=== PATIENT | male | born 1975 | race Caucasian/White ===

== ENCOUNTER 2021-08-01 10:36 | Observation (INO) | payer OTHER, SELFPAY ==
[2021-08-01] VITALS (31 sets, daily range): BP systolic 132–171; BP diastolic 71–98; PULSE 70–94; RESP 15–24; TEMP 35.9–36.8; O2SAT 95–99
--- NOTE | ~2021-08-01 | US_ITS ---
EXAMINATION: US abdomen limited DATE: 08/02/2021 09:59 INDICATION: Abnormal liver function tests. Hepatitis C. TECHNIQUE: Multiple grayscale and Doppler ultrasound images of the abdomen were obtained. COMPARISON: None FINDINGS: The visualized portions of the head, body, and tail of the pancreas are normal. The liver i s normal without focal lesion. No liver surface nodularity. There is normal flow in main portal vein. The gallbladder is normal in size and contains gallstones. Gallbladder wall thickening is noted. The re was no sonographic Cui sign. The common duct is normal and measures 3 mm. IMPRESSION: 1. Cholelithiasis. Gallbladder wall thickening may be seen with interstitial edema, chronic cholecyst itis, or chronic liver disease. Reviewed, dictated and finalized at location B. DCAST ENGINEER IMPRESSION: 1. Cholelithiasis. Gallbladder wall thickening may be seen with interstitial ed sagar, chronic cholecystitis, or chronic liver disease.
--- NOTE | ~2021-08-01 | CT_ITS ---
EXAMINATION: CTA brain carotid EXAM DATE: 08/01/2021 13:05 INDICATION: Suspect CVA, slurred speech. TECHNIQUE: Noncontrast head CT. Spiral CTA of the carotid arteries was performed with intravenous i njection 200 cc of Omnipaque 350 (there was poor opacification on the 1st scan so patient was injecte d again. Axial, coronal, sagittal reformatted images reviewed. Additional reformatted images created on dedicated 3-D workstation. NASCET comparable standard used to assess the degree of arterial sten osis. Spiral CT angiogram cerebral arteries performed with the same intravenous injection of contras t. Source images of the brain CTA transferred to dedicated workstation for 3-D rotational image creat ion. Coronal, sagittal maximum intensity pixel images also reviewed. The dose-length product (DLP) for this examination was 2564.41 mGy-cm. The exposure was tailored according to patient size, and i terative reconstruction (ASIR) was used as additional dose reduction technique. Correlation is made t o head CT earlier same date. FINDINGS: Imaged portion of ascending aorta measures 4.6 cm, mildly aneurysmal. There is mild to mode rate left carotid bulb arteriosclerosis, mild right carotid bulb arteriosclerosis, with 0% stenosis b ilaterally. Suboptimal intracranial opacification on both of the scans, but no cerebral artery trunca tion identified. There is no carotid or vertebral basilar arterial dissection or fibromuscular dyspla belle. There are no cerebral artery aneurysms. There is symmetric cerebral artery arborization. The sag ittal, transverse and sigmoid sinuses enhance normally, no venous sinus thrombosis. Internal cerebral veins also enhance normally. Incidental Findings: Cervical spondylosis. IMPRESSION: 1. No acute carotid or intracranial findings. 2. Bilateral carotid bulb 0% stenosis. Reviewed, dictated and finalized at location B. BILITATION SPECIALIST
--- NOTE | ~2021-08-01 | MR_ITS ---
EXAMINATION: MR brain/brain stem wo/w con EXAM DATE: 08/02/2021 17:10 INDICATION: CVA work up, slurred speech TECHNIQUE: Magnetic resonance imaging (MRI) of the brain/brain stem obtained without contrast. Sagit susana T1, axial diffusion, gradient echo (T2*), T1, T2, FLAIR sequences obtained. Patient was then inj ected with 20 cc intravenous Multihance contrast. Axial and coronal postcontrast T1 weighted sequence s obtained. Correlation is made to CTA brain carotid from yesterday. FINDINGS: Study is limited due to patient motion. There are no areas of restricted diffusion to sugg est acute infarction. There is no acute hemorrhage seen on the T2*, a hemosiderin sensitive sequence . No intraparenchymal brain mass. The ventricles are normal in size. There are no extra-axial colle ctions. Flow voids are seen in the cerebral arteries on the T2-weighted sequences consistent with th eir expected patency. The orbits are unremarkable. Soft tissue is unremarkable. There are no area s of abnormal enhancement on the postcontrast images. IMPRESSION: Limited from motion but no acute intracranial findings. Reviewed, dictated and finalized at location A. IX OPERATOR CONCENTRATE
--- NOTE | ~2021-08-01 | XR_ITS ---
EXAMINATION: XR chest 1V DATE: 08/01/2021 11:20 INDICATION: Slurred speech. Weakness. TECHNIQUE: A single frontal view of the chest was obtained. COMPARISON: None. FINDINGS: The chest demonstrates clear lungs without pneumonia, pleural effusion, or pneumothorax. Th e heart size is normal. IMPRESSION: 1. No acute cardiopulmonary disease. Reviewed, dictated and finalized at location A. R RELATIONS SPECIALIST
--- NOTE | ~2021-08-01 | CT_ITS ---
EXAMINATION: CT brain wo con DATE: 08/01/2021 11:12 INDICATION: Slurred speech. TECHNIQUE: Computed tomography (CT) of the head was performed without intravenous contrast. The mA wa s adjusted according to patient size. Iterative reconstruction technique was employed. The dose-lengt h product was 681.00 mGy-cm. COMPARISON: None FINDINGS: There is no intracranial hemorrhage, acute infarction, or abnormal intracranial mass lesion . The ventricles are normal in size. The orbits are normal. There is mucosal thickening in the parana adrianna sinuses. The mastoid air cells are normal. IMPRESSION: 1. Normal brain. Reviewed, dictated and finalized at location A. ER MEAT IMPRESSION: 1. Normal brain.
[2021-08-01 10:53] LABS: Glucose Point of Care 135 mg/dl (65-105)
--- NOTE | 2021-08-01 10:56 | ECG_ITS ---
Measurements Intervals [place] Rate: 93 P: 62 [place]: 150 QRS: -49 QRSD: 108 T: 56 QT: 359 QTc: 447 Interpretive Statements SINUS RHYTHM LEFT ANTERIOR FASCICULAR BLOCK VOLTAGE CRITERIA FOR LVH ABNORMAL ECG Electronically Signed On 08-01-2021 16:51:48 CAREER DEVELOPER by Abdiel Calvillo D.O.
[2021-08-01 11:41] LABS: Basophils Percent Auto 0.2 % (0.2-1.2); Eosinophils Percent Auto 0.1 % (0-4.4); Hemoglobin 15.6 g/dL (14.0-18.0); Immature Granulocyte Absolute 0.02 K/mm3 (0.00-0.031); Immature Granulocyte Percent A 0.2 % (0-0.5); Lymphocytes Absolute Auto 1.87 K/mm3 (0.9-3.2); Lymphocytes Percent Auto 18.6 % (18.3-44.2); Mean Corpuscular HGB Conc 34.7 g/dl (32-36); Mean Corpuscular Hemoglobin 29.8 pg (26-34); Mean Corpuscular Volume 85.9 fl (80-100); Mean Platelet Volume 11.7 fl (7.4-10.4); Monocytes Absolute Auto 0.9 K/mm3 (0.1-0.6); Monocytes Percent Auto 8.6 % (2.6-8.5); Neutrophils Absolute Auto 7.3 K/mm3 (1.3-6.7); Neutrophils Percent Auto 72.3 % (45.5-73.1); Platelet Count Result 217 k/mm3 (150-375); Red Blood Count 5.24 M/mm3 (4.6-6.20); Red Cell Distribution Width 13.4 % (11.5-14.5)
[2021-08-01 11:43] LABS: Alanine Aminotransferase 177 U/L (4-50); Albumin Level 4.8 g/dL (3.5-5.1); Alkaline Phosphatase 62 U/L (38-126); Anion Gap 11 mmol/L (8-16); Aspartate Amino Transferase 237 U/L (17-59); Blood Urea Nitrogen 28 mg/dL (9-20); Calcium 9.7 mg/dL (8.4-10.2); Carbon Dioxide 22 mmol/L (22-30); Chloride 107 mmol/L (98-107); Estimated Glomerular Filt Rate > 60; Glucose 134 mg/dL (65-110); Potassium 4.4 mmol/L (3.4-5.0); Sodium 140 mmol/L (137-145)
[2021-08-01 11:55] LABS: Troponin I < 0.012 ng/mL (0.000-0.034)
[2021-08-01 11:57] LABS: Prothrombin Time 13.4 Seconds (11.1-14.7)
[2021-08-01 11:58] LABS: Partial Thromboplastin Time 28.1 SECONDS (22.3-36.8)
--- NOTE | 2021-08-01 12:12 | ED.NEUROSD ---
HPI - Neuro Symptoms/Deficit General Chief Complaint: Suspected CVA Stated Complaint: neuro symptoms Time Seen by Provider: 08/01/21 11:50 History of Present Illness HPI Narrative: 46-year-old male presenting to the emergency department from local senior living for evaluation of slurred speech. Apparently patient was taken into senior living yesterday. Patient reports last night he had increased slurring of speech. Ambulance was not called until earlier today. Patient's primary complaint has been slurred speech. Patient has had no no numbness or weakness. Patient does seem slow to answer questions. Patient does still feel that his speech is slurred. Patient does not have his top dentures and so this may be contributing some to his speech changes. Review of Systems Review of Systems: Patient denies any thing other than his slurred speech. However patient is slow to answer questions. ROS unobtainable: Yes unobtainable due to mental status Exam Narrative: APPEARANCE: Well appearing, no pain in distress, well-nourished. Head normocephalic atraumatic. NECK: Supple. No adenopathy, no masses. RESPIRATORY: Airway patent, respirations nonlabored. Clear to auscultation bilaterally, no rales, rhonchi, wheezing. CARDIOVASCULAR: Regular rate and rhythm without murmurs rubs or gallops. ABDOMINAL: Soft, nontender, nondistended, no hepatosplenomegally MUSCULOSKELETAl: Moves all extremities. Strength/ROM intact, No edema, No calf tenderness. NEURO: Alert. Cranial nerves II through XII intact. Good gait. Good coordination. Patient is moving all extremities equally. Patient does have some slurred speech but has no cranial nerve deficit. SKIN: Warm, dry. Normal Color PSYCHIATRIC: Normal affect/mood Course Course Emergency Course: Patient was updated on the need for neuroimaging. No significant abnormalities were noted on plain CT or CTA. Case was discussed with Dr. Dominguez from neurology and he agrees a plan for admission and further evaluation. Consultations Consultation #1: Dr. Dominguez for neurology was consulted Vital Signs Vital signs: Vital Signs Temperature 96.7 F L 08/01/21 10:26 Pulse Rate 94 08/01/21 10:26 Respiratory Rate 18 08/01/21 10:26 Blood Pressure 155/88 H 08/01/21 10:26 Pulse Oximetry 99 08/01/21 10:26 Temperature 96.7 F L 08/01/21 10:26 Pulse Rate 88 08/01/21 13:31 Respiratory Rate 23 H 08/01/21 13:31 Blood Pressure 171/93 H 08/01/21 13:31 Pulse Oximetry 99 08/01/21 12:48 MDM - Neuro Symptoms/Deficit MDM Narrative Medical decision making narrative: On arrival to the emerge department patient has no specific cranial nerve deficit. Patient does have slurred speech but this may be due to his age inpatient and possible benzos. Due to patient possibly not being at his normal mental baseline patient will be admitted to the hospitalist. MRI was ordered. Patient was stable at time of admission process. Differential Diagnosis Differential diagnosis: Likely cerebrovascular accident, transient cerebral ischemia and other (Acute intoxication) Lab Data Attestation: I reviewed the patient's lab results. Result diagrams: 08/01/21 11:26 08/01/21 11:26 Labs: Lab Results 08/01/21 08/01/21 08/01/21 Range/Units 10:50 11:26 11:26 WBC 10.0 (4.5-10.0) K/mm3 RBC 5.24 (4.6-6.20) M/mm3 Hgb 15.6 (14.0-18.0) g/dL Hct 45.0 (42.0-52.0) % MCV 85.9 (80-100) fl MCH 29.8 (26-34) pg MCHC 34.7 (32-36) g/dl RDW 13.4 (11.5-14.5) % Plt Count 217 (150-375) k/mm3 MPV 11.7 H (7.4-10.4) fl Immature Gran % (Auto) 0.2 (0-0.5) % Neut % (Auto) 72.3 (45.5-73.1) % Lymph % (Auto) 18.6 (18.3-44.2) % [place] % (Auto) 8.6 H (2.6-8.5) % Eos % (Auto) 0.1 (0-4.4) % Baso % (Auto) 0.2 (0.2-1.2) % Lymph # (Auto) 1.87 (0.9-3.2) K/mm3 [place] # (Auto) 0.9 H (0.1-0.6) K/mm3 Eos # (Auto) 0.0 (0-0.3) K/mm3 Baso # (Auto) 0.0 (0.0-0.1) K/
[2021-08-01 13:47] LABS: Add Urine Microscopic? YES; Appearance Urine Clear (Clear); Bilirubin Urine Negative (Negative); Blood Urine Negative (Negative); Color Urine Yellow (Yellow); Glucose Urine UA Negative (Negative); Ketones Urine 1+ mg/dL (Negative); Leukocyte Esterase Ur Negative LEU/UL (Negative); Mucus Urine Rare /lpf; Nitrate Urine Negative (Negative); Protein Urine Negative (Negative); RBC Urine 0-2 /hpf (0-2); Squamous Epithelial Cell Urine Rare /hpf (Few); Urobilinogen Urine Negative mg/dL (<2.0); WBC Urine 0-3 /hpf
[2021-08-01 13:57] LABS: Barbiturate Screen Urine Negative (Negative); Benzodiazepines Screen Urine Positive (Negative)
[2021-08-01 14:05] LABS: Cannabinoid Screen Urine Negative (Negative); Cocaine Screen Urine Negative (Negative); Methadone Screen Urine Negative (Negative); Opiate Screen Urine Negative (Negative); Phencyclidine Screen Urine Negative (Negative)
[2021-08-01 14:25] LABS: Amphetamine Screen Urine Positive (Negative)
--- NOTE | 2021-08-01 16:02 | PC.NURSE ---
[facility] faxed to [address] [place] [address] for room 348
--- NOTE | 2021-08-01 16:52 | ADMGEN ---
This patient, Alber Narvaez, was admitted to Medical Room 348-. Patient/family oriented to hospital policies and general routines including ID bracelet, bed and alarms, visiting hours, pain management, procedures, bathroom and other care routines, personal items, smoking policy, room service/diet, and visiting hours. Information on how to activate the Rapid Response Team has been discussed. Patient/Family are encouraged to report perceived risks to care and to ask questions if they do not understand what they are told or what they should do.
--- NOTE | 2021-08-01 16:57 | PC.NURSE ---
Patient is unable to answer some of my admission questions r/t mental status. He is only able to answer some simple yes or no questions and even that speech is very gargle and he is not the best historian. Will attempt to try to reach some family.
--- NOTE | 2021-08-01 19:30 | PM.IMHP ---
H&P: HPI History of Present Illness Date/Time: 08/01/21 19:30 Chief Complaint: Slurred speech. Narrative: This is a 46-year-old male smoker with hypertension, borderline diabetes, gout, and bipolar disorder presented to the emergency department earlier today via EMS for evaluation of slurred speech. He apparently has been in place custody for couple of days and the patient noticed that his speech was slurred sometime yesterday evening however he was not brought in for evaluation and held this morning. The patient is edentulous and does not wear dentures and he does admit that his speech is slurred somewhat however not nares significant as what it has been since last evening. Brain CT and CTA of the head and neck showed no acute finding but given continued slurred speech and his risk factors I was asked to admit him for further evaluation. At the time my evaluation he is at times hard to understand as he mumbles and tends to speak softly. When I asked him to speak up and speak slowly he is very easy to understand. He does not think his speech is any more slurred than usual at this time. He also denies vertigo, auditory and visual changes, facial asymmetry, dysphagia, and focal weakness. He has intermittent paresthesias in his hands and feet although that has been going on for quite some time and in fact the patient thinks he probably is a diabetic and that this is neuropathy. These symptoms have remained unchanged. He has no history of cardiac dysrhythmia and denies palpitations, fluttering, and feelings of racing heart. It should be noted that his urine drug screen was positive for benzodiazepines and amphetamines and he does admit that he has done meth on occasion. He tells me that he is prescribed benzodiazepines but will get them off the street as well. He has not had any alcohol or ingested any drugs over the past 48 hours that he has been in police custody. Review of Systems Review of Systems: Twelve systems were reviewed. No fever, chills, or sweats. No recent cold or flu symptoms. He denies cough. No nausea, vomiting, or diarrhea. No dysuria. He denies harmful thoughts. Except as documented all other systems were reviewed and are negative. [facility] Past Medical History Medical History (Updated 08/01/21 @ 23:24 by aMry Arciniega PA-C) Bipolar disorder Borderline diabetes Depression with anxiety Gout Hypertension Polysubstance abuse Surgical History Surgical History (Updated 08/01/21 @ 23:20 by Mary Arciniega PA-C) History of arthroscopy of right knee Family History Family History (Updated 08/01/21 @ 23:21 by Mary Arciniega PA-C) Other Cerebrovascular accident Diabetes mellitus Social History Social History (Updated 08/01/21 @ 23:21 by Mary Arciniega PA-C) Social History: Surrogate decision maker: Nuria Narvaez, mother. Code status: Full code. Smoking status: Current some day smoker Alcohol intake: former Substance use: current Substance use type: amphetamines, opiates, methamphetamine and prescription drug Additional living arrangements comments: The patient lives with his mother in [place]. Additional occupation/education comments: Unemployed. Meds Home Medications and Allergies Home Medications Medication Instructions Recorded Confirmed Type Unable to Obtain Home Medications 08/01/21 08/01/21 History Allergies Allergy/AdvReac Type Severity Reaction Status Date / Time No Known Allergies Allergy Verified 08/01/21 16:55 Vital Signs Vital Signs - 24 hr 08/01/21 10:26 08/01/21 10:45 08/01/21 10:46 Temperature 96.7 F L Pulse Rate 94 87 92 Respiratory Rate 18 20 23 H Blood Pressure 155/88 H 148/98 H Pulse Oximetry 99 95 08/01/21 11:00 08/01/21 11:01 08/01/21 12:13 Temperature Pulse Rate 82 81 75 Respiratory Rate 17 15 18 Blood Pressure 150/97 H 149/89 H Pulse Oximetry 98 08/01/21 12:14 08/01/21 12:15 08/01/21 12:16 Temperature
[2021-08-02] VITALS (8 sets, daily range): BP systolic 139–167; BP diastolic 81–98; PULSE 68–95; RESP 16–24; TEMP 35.7–36.7; O2SAT 100
[2021-08-02 00:06] LABS: Acetaminophen < 10 ug/mL (10-30)
[2021-08-02 00:07] LABS: Ammonia < 9 umol/L (9-30)
[2021-08-02 00:25] LABS: Creatine Kinase 4063 U/L (55-170)
[2021-08-02] MEDS: NICOTINE (*PBKC) 21 MG PATCH 1 PATCH TRANSDERM (01:09)
[2021-08-02 06:34] LABS: Hematocrit 45.9 % (42.0-52.0); Hemoglobin 15.4 g/dL (14.0-18.0); Mean Corpuscular HGB Conc 33.6 g/dl (32-36); Mean Corpuscular Hemoglobin 29.7 pg (26-34); Mean Corpuscular Volume 88.6 fl (80-100); Mean Platelet Volume 11.6 fl (7.4-10.4); Platelet Count Result 190 k/mm3 (150-375); Red Blood Count 5.18 M/mm3 (4.6-6.20); Red Cell Distribution Width 13.2 % (11.5-14.5); White Blood Count 8.1 K/mm3 (4.5-10.0)
[2021-08-02 06:40] LABS: Prothrombin Time 13.2 Seconds (11.1-14.7)
[2021-08-02 06:41] LABS: Partial Thromboplastin Time 26.5 SECONDS (22.3-36.8)
[2021-08-02 06:45] LABS: Alanine Aminotransferase 159 U/L (4-50); Albumin Level 4.6 g/dL (3.5-5.1); Alkaline Phosphatase 58 U/L (38-126); Anion Gap 5 mmol/L (8-16); Aspartate Amino Transferase 250 U/L (17-59); Bilirubin,Total 0.9 mg/dL (0.2-1.3); Blood Urea Nitrogen 21 mg/dL (9-20); Calcium 9.5 mg/dL (8.4-10.2); Carbon Dioxide 29 mmol/L (22-30); Chloride 104 mmol/L (98-107); Cholesterol 173 mg/dL (0-200); Estimated CRCL calculation 128 ml/min; Estimated Glomerular Filt Rate > 60; Glucose 116 mg/dL (65-110); HDL Direct 39 mg/dL; Magnesium 2.1 mg/dL (1.6-2.3); Potassium 3.8 mmol/L (3.4-5.0); Sodium 138 mmol/L (137-145); Triglycerides 131 mg/dL (<150)
[2021-08-02 06:56] LABS: LDL Cholesterol Direct 98 mg/dL
[2021-08-02 07:10] LABS: Hemoglobin A1C 6.2 % (<5.7)
[2021-08-02 07:32] LABS: Hepatitis B Surface Antigen Negative (Negative)
[2021-08-02 07:38] LABS: HAV RESULT Negative (Negative); Hepatitis B Core IgM Result Negative (Negative)
[2021-08-02 07:56] LABS: Hepatitis C Virus Antibody Reactive (Negative)
--- NOTE | 2021-08-02 12:10 | PM.IMPN ---
Progress Note: A&P Assessment and Plan (1) Dysarthria: Code(s): R47.1 - Dysarthria and anarthria Status: Acute Assessment and Plan: Patient reports slurred speech , improved on admission Brain CT and CT of the head and neck were unremarkable MRI to rule out intracranial abnormality Neuro consult Tele monitoring (2) Borderline diabetes: Code(s): R73.03 - Prediabetes Status: Acute Assessment and Plan: BG 110S-130s Hemoglobin A1c 6.2 Hypoglycemic protocol Monitor (3) Hypertension: Code(s): I10 - Essential (primary) hypertension Status: Acute Assessment and Plan: Blood pressure elevated Continue lisinopril and monitor closely (4) Elevated LFTs: Code(s): R79.89 - Other specified abnormal findings of blood chemistry Status: Acute Assessment and Plan: Elevated in a hepatocellular pattern Abdominal exam is benign Hepatitis panel neg RUQ US-->Cholelithiasis. Gallbladder wall thickening may be seen with interstitial edema, chronic cholecystitis, or chronic liver disease (5) Polysubstance abuse: Code(s): F19.10 - Other psychoactive substance abuse, uncomplicated Status: Chronic Assessment and Plan: Including benzodiazepines and occasional methamphetamines Patient requested nicotine patch (6) Psychiatric illness: Code(s): F99 - Mental disorder, not otherwise specified Status: Acute Assessment and Plan: Patient reports that he is on medication for bipolar disorder, depression, and anxiety Unable to recall his medications at this time but we will need to call his pharmacy and get those verified as soon as possible Pt to be evaluated by after reporting that he wants to kill his friend because UDS was positive for meth Subjective Date/time seen: 08/02/21 12:10 Interval history: Pt seen this a.m.; labs, vs, diagnostic tests reviewed; AOX3; no new complaints Review of Systems Review of Systems: All systems reviewed & are unremarkable except as noted in HPI and below Exam Narrative: General: NAD. Obese HEENT: EOMI. mucus membranes moist. Oropharynx clear. Neck: Supple. No JVD Respiratory: Lungs are clear to auscultation bilaterally. Cardiovascular: Regular rate and rhythm with S1-S2. No murmur, rub, or gallop. Gastrointestinal: Abdomen is soft, nontender, and nondistended with positive bowel sounds. Skin: Warm and dry. No rash or lesions on limited exam. Extremities: No cyanosis, clubbing, or edema. Peripheral pulses intact. Neurological: Alert and oriented. No focal defect. Moves all extremities Psychiatric: He is cooperative with appropriate mood. Objective Data Vital Signs Vital Signs: Vital Signs - 24 hr 08/01/21 12:13 08/01/21 12:14 08/01/21 12:15 Temperature Pulse Rate 75 75 74 Respiratory Rate 18 19 18 Blood Pressure 149/89 H 149/89 H Pulse Oximetry 98 98 98 08/01/21 12:16 08/01/21 12:48 08/01/21 13:15 Temperature Pulse Rate 74 77 Respiratory Rate 15 Blood Pressure 135/93 H Pulse Oximetry 97 99 08/01/21 13:30 08/01/21 13:31 08/01/21 13:32 Temperature Pulse Rate 79 88 84 Respiratory Rate 24 H 23 H 16 Blood Pressure 171/93 H Pulse Oximetry 08/01/21 13:45 08/01/21 14:00 08/01/21 14:01 Temperature Pulse Rate 82 80 82 Respiratory Rate 20 20 21 H Blood Pressure 158/95 H Pulse Oximetry 08/01/21 14:16 08/01/21 14:49 08/01/21 15:00 Temperature Pulse Rate 84 85 Respiratory Rate 16 16 Blood Pressure 164/81 H Pulse Oximetry 96 08/01/21 15:15 08/01/21 15:30 08/01/21 15:45 Temperature Pulse Rate 84 78 75 Respiratory Rate 17 16 15 Blood Pressure Pulse Oximetry 08/01/21 15:56 08/01/21 16:00 08/01/21 16:01 Temperature Pulse Rate 75 74 76 Respiratory Rate 16 17 19 Blood Pressure 132/75 134/85 Pulse Oximetry 08/01/21 16:25 08/01/21 16:57 08/01/21 17:19 Temperature 36.3 C L Pul
--- NOTE | 2021-08-02 15:07 | PC.NURSE ---
FOREMAN OR SUPERVISOR AND OPERATOR entered the patients room to answer a bed exit alarm. When the FOREMAN OR SUPERVISOR AND OPERATOR entered the room the patient was visually upset. The FOREMAN OR SUPERVISOR AND OPERATOR called this nurse in to help de-escalate the situation. The patient was upset in regards to the hospitalist stating the patient had positive drug screen for Amphetamines and Benzodiazepines. The patient was adament about not having taking any medications or Meth for atleast 3 weeks. The patient was upset and started making comments about killing the person that had given him the Xanax which he describes taking from a friend. He then went into detail about killing the best friend that gave him the medications because he obviously laced them with something . When this nurse left the room the patient disclosed to the FOREMAN OR SUPERVISOR AND OPERATOR that he would invite his friend out hunting to kill him. The FOREMAN OR SUPERVISOR AND OPERATOR told this nurse the previously stated information. This nurse contacted the hospitalist Oralia Sherman NP, the charge nurse Shukri Casey RN, BSN and the warehouse supervisor 3rd shift Elana Salazar. A [place] Suicide-risk assessment was performed on the patient which showed a low risk because the patient stated that he only said it in a state of rage and anger. The low risk assessment was told to the warehouse supervisor 3rd shift, charge nurse and hospitalist. It was determined that the patient needed to be evaluated by crisis to be sure to cover all of your basis. Crisis was contacted by this nurse to come and evaluate the patient. Shukri Casey was informed that crisis was contacted to come out for an evaluation. Oralia Sherman NP, was informed that crisis was contacted to come out and evaluate the patient.
[2021-08-02 17:04] LABS: Glucose Point of Care 115 mg/dl (65-105)
[2021-08-02 22:46] LABS: Glucose Point of Care 89 mg/dl (65-105)
[2021-08-02] MEDS: ACETAMINOPHEN 325 MG TABLET 650 MG PO (23:16)
[2021-08-03] VITALS: PULSE 83
[2021-08-03 04:00] VITALS: PULSE 70
[2021-08-03 06:00] VITALS: BP 131/68; PULSE 63; RESP 20; TEMP 35.4; O2SAT 100
--- NOTE | 2021-08-03 08:10 | PC.NURSE ---
Patient upset this morning wants to leave against medical advice, he states he feels better and is ready to go. Oralia Sherman called and made aware that patient wants to leave against medical advice. Patient is alert and is able to make his own decisions. This nurse educated on the importance of staying in the hospital and waiting to see the doctor but patient refused. He wants to leave. Patient IV taken out. Leaving against medical advice formed signed.
--- NOTE | 2021-08-03 14:27 | PM.DS ---
DS: Admitting Diagnosis Discharge Date 08/03/21 Admitting Diagnosis Dysarthria DS: Discharge Diagnosis Discharge Diagnosis (1) Dysarthria: Code(s): R47.1 - Dysarthria and anarthria Status: Acute Assessment and Plan: Patient reports slurred speech , improved on admission Brain CT and CT of the head and neck were unremarkable MRI-->Limited from motion but no acute intracranial findings Neuro consult (2) Borderline diabetes: Code(s): R73.03 - Prediabetes Status: Acute Assessment and Plan: BG 110S-130s Hemoglobin A1c 6.2 Hypoglycemic protocol (3) Hypertension: Code(s): I10 - Essential (primary) hypertension Status: Acute Assessment and Plan: Blood pressure improved Continue lisinopril (4) Elevated LFTs: Code(s): R79.89 - Other specified abnormal findings of blood chemistry Status: Acute Assessment and Plan: Elevated in a hepatocellular pattern Abdominal exam is benign Hepatitis panel neg RUQ US-->Cholelithiasis. Gallbladder wall thickening may be seen with interstitial edema, chronic cholecystitis, or chronic liver disease (5) Polysubstance abuse: Code(s): F19.10 - Other psychoactive substance abuse, uncomplicated Status: Chronic Assessment and Plan: Including benzodiazepines and occasional methamphetamines Patient requested nicotine patch (6) Psychiatric illness: Code(s): F99 - Mental disorder, not otherwise specified Status: Acute Assessment and Plan: Patient reports that he is on medication for bipolar disorder, depression, and anxiety Unable to recall his medications at this time but we will need to call his pharmacy and get those verified as soon as possible Pt to be evaluated by after reporting that he wants to kill his friend because UDS was positive for meth DS: Summary Hospital Course Hospital Course: This is a 46-year-old male smoker with hypertension, borderline diabetes, gout, and bipolar disorder presented to the emergency department earlier today via EMS for evaluation of slurred speech. He apparently has been in place custody for couple of days and the patient noticed that his speech was slurred sometime yesterday evening however he was not brought in for evaluation and held this morning. The patient is edentulous and does not wear dentures and he does admit that his speech is slurred somewhat however not nares significant as what it has been since last evening. Brain CT and CTA of the head and neck showed no acute finding but given continued slurred speech and his risk factors I was asked to admit him for further evaluation. At the time my evaluation he is at times hard to understand as he mumbles and tends to speak softly. When I asked him to speak up and speak slowly he is very easy to understand. He does not think his speech is any more slurred than usual at this time. He also denies vertigo, auditory and visual changes, facial asymmetry, dysphagia, and focal weakness. He has intermittent paresthesias in his hands and feet although that has been going on for quite some time and in fact the patient thinks he probably is a diabetic and that this is neuropathy. These symptoms have remained unchanged. He has no history of cardiac dysrhythmia and denies palpitations, fluttering, and feelings of racing heart. It should be noted that his urine drug screen was positive for benzodiazepines and amphetamines and he does admit that he has done meth on occasion. He tells me that he is prescribed benzodiazepines but will get them off the street as well. He has not had any alcohol or ingested any drugs over the past 48 hours that he has been in police custody The patient left AMA this morning prior to being seen and evaluated. Time Spent with Patient Time attestation: Total time spent providing and/or coordinating discharge services: Time spent: Greater than 30 minutes DS: Data Data Completed and Pendi
[2021-08-14 15:20] LABS: Hepatitis C RNA, Quant PCR 817000 IU/mL
== END 2021-08-03 08:22 | disposition left against medical advice (07) ==
LOC: ANHED 14:18 → ANH3MEDSUR 15:58 → ANH3MED 16:02
PROVIDERS: Emergency Medicine; Physician Assistant; Admitting Provider Family Medicine; Emergency Provider Emergency Medicine; Visit Provider Family Medicine
DX: R47.1 Dysarthria and anarthria (principal); R73.03 Prediabetes; I10 Essential (primary) hypertension; R79.89 Other specified abnormal findings of blood chemistry; M10.9 Gout, unspecified; K80.20 Calculus of gallbladder without cholecystitis without obstruction; F31.9 Bipolar disorder, unspecified; F41.9 Anxiety disorder, unspecified; F19.10 Other psychoactive substance abuse, uncomplicated
CPT/HCPCS: 36415; 70450; 70496; 70498; 70553; 71045; 76705; 80053; 80061; 80074; 80307; 81001; 82140; 82550; 82948; 83036; 83735; 84443; 84484; 85025; 85027; 85610; 85730; 87522; 93005; 99285; A9270; A9577; G0378; G0379; Q9967

== ENCOUNTER 2022-11-20 08:55 | Outpatient (CLI) | payer OTHER, SELFPAY ==
--- NOTE | ~2022-11-20 | CT_ITS ---
EXAMINATION: CT brain wo con DATE: 11/20/2022 09:17 INDICATION: Expressive aphasia. Headache, dizziness, memory loss. Blurry vision. TECHNIQUE: Computed tomography (CT) of the head was performed without intravenous contrast. The mA wa s adjusted according to patient size. Iterative reconstruction technique was employed. Exam dose: 68 1.00 mGy-cm total exam DLP. COMPARISON: 08/02/2021 MRI brain/brainstem 08/01/2021 CT brain and CTA brain carotid FINDINGS: No intracranial mass lesion or hemorrhage or cerebrovascular accident is evident. No midlin e shift or mass effect. No subdural or epidural hematoma. Orbital contents are unremarkable. The paranasal sinuses and mastoid air cells are normally developed and aerated. No fracture or bone destruction of the cranial vault. IMPRESSION: No significant abnormality Reviewed, dictated and finalized at [facility]. Reviewed, dictated and finalized at [facility]. IMPRESSION: No significant abnormality
--- NOTE | ~2022-11-20 | US_ITS ---
Procedure: Duplex Doppler examination of the bilateral carotids. Indication: Expressive aphasia Technique: Real time, color-flow and pulse wave Doppler examination of the bilateral carotids was performed. Findings: Helton scale ultrasonography of the right neck demonstrated no significant plaque. There was demonstrat ion of normal color-flow and Doppler waveforms within the right common, internal and external carotid arteries. The peak systolic velocities in the right common, internal and external carotid arteries w ere demonstrated to be 96 cm/sec, 82 cm/sec and 111 cm/sec respectively. The right ICA/CCA ratio was 0.8.The proximal right internal carotid artery demonstrates 0% stenosis relative to the normal distal artery lumen diameter. Helton scale sonography of the left neck demonstrated no significant plaque. There was demonstration of normal color-flow and wave forms within the left common, internal and external carotid arteries. The peak systolic velocities in the left common, internal and external carotid arteries were demonstrate d to be 101cm/sec, 87 cm/sec and 92 cm/sec respectively. The left ICA/CCA ratio was 0.9. The proximal left internal carotid artery demonstrates 0% stenosis relative to the normal distal artery lumen nicole meter. There was antegrade flow demonstrated in the bilateral vertebral arteries. Impression: No hemodynamically significant stenosis of the bilateral internal carotid arteries. Antegrade flow in the bilateral vertebral arteries. Note: The methodology used is an indirect measurement validated against a direct method (such as the NASCET criteria) that compares diameters at the stenosis to the distal ICA. Reviewed, dictated and finalized at [facility]. Impression: No hemodynamically significant stenosis of the bilateral internal carotid arter ies. Antegrade flow in the bilateral vertebral arteries. Note: The methodology used is an indirect measurement validated against a direct meth od (such as the NASCET criteria) that compares diameters at the stenosis to the distal ICA.
== END 2022-11-20 08:56 | disposition home or self-care (01) ==
PROVIDERS: PCP Internal Medicine; Visit Provider Internal Medicine
DX: R47.01 Aphasia (principal)
CPT/HCPCS: 70450; 93880